=== PATIENT | female | born 1975 | race Caucasian/White ===

== ENCOUNTER 2019-10-28 13:00 | Outpatient (RCR) | payer OTHER, SELFPAY ==
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
--- NOTE | 2019-09-01 13:58 | PT.OPPOC ---
Physical, Occupational & Speech Therapy At [facility] Current Diagnoses Sacrococcygeal disorders, not elsewhere classified (09/01/19) Visit Care Team Role Provider Type Winter Buenrostro MD Attending Provider Non-Staff Primary Care Provider Specialty: Family Practice Address: [address] [place] [address], [id number] Email: Plan Of Care PT-OP-T Assessment and Plan Start: 07/18/19 21:41 Freq: Status: Active Protocol: Document 09/01/19 13:43 [facility] (Rec: 09/01/19 13:54 [facility] [email or web address]) Physical Therapy Assessment Goals Three Impairment sacral dysfunction with sacrum rotated left Short Term Goal (STG) With manual therapy techniques the sacrum is balanced and no longer rotated to the left, no tenderness to palpation over the left RICARDO and RICARDO's are equal depth As of 09/01/19 this is improved but there is still a deep tenderness at the left sacral RICARDO and swelling noted at the base of the sacrum STG Duration 4 weeks Two Impairment sacral and coccyx pain and pain with sitting and sit- stand [facility] Goal (LTG) Patience notes overall a reduction in pain levels and is able to perform sit-stand without symptoms As of 09/01/19 pt reports no pain in standing and can sit but it is when she goes to stand especially after sitting for long duration that she has large amounts of pain LTG Duration 8 weeks One Impairment pelvic floor hypertonicity and spasm, difficulty relaxing [employer] Physiotherapist Goal (LTG) Patience is able to relax her pelvic floor to baseline with EMG biofeedback and is able to feel when her pelvic floor is fully relaxed As of 09/01/19 Patience is able to relax to 2.5 uv with EMG biofeedback. She is still very guarded on the left coccygeus musculature. I have given her a size small dilator to work on self release and she is also using tennis balls on either side of her sacrum for self release along with her stretching and stabilization program LTG Duration 8 weeks Progress Towards Goals Progress Towards Goals Slow Progress - Other Progress Comments Patience has been seen for a total of 5 PT visits for her coccyx pain. We have been working on internal release of the coccyx with both rectal techniques and vaginal techniques. She shows improved alignment of her sacrum but still has a good amount of guarding at the coccygeus musculature. She tends to contract her pelvic floor at rest. We are working on both EMG biofeedback and manual cues to relax the coccygeus. Assessment Summary Assessment Pt reports she feels the best after yoga. There is tenderness at the left RICARDO today and tightness left coccygeus. Pt to work with her dilator on self release of the coccygeus. Pt doing better with pelvic floor relaxation in general today but still tends to contract when she feels she is relaxing. . Physical Therapy Plan Frequency and Duration Frequency of Treatment 2x/Week Duration of Treatment 8 Plan of Care Start Date 09/01/19 Plan of Care End Date 11/03/19 Therapeutic Interventions Therapeutic Interventions Home Exercise Program,Joint Mobilizations,Manual Therapy, Neuromuscular Re-education, Patient/Caregiver Education, Self-Care/Home Management,Soft Tissue Mobilization, Therapeutic Exercises Modalities Biofeedback Next Visit Focus/Plan Next Note Type Treatment Note Next Visit Plan Continue with EMG biofeedback for down training of the pelvic floor, manual therapy techniques for coccyx release, review pelvic floor stretches for home. Plan of Care Dates Plan of Care Start Date 09/01/19 Plan of Care End Date 11/03/19 Electronically Signed by: Mendy Quesada, PT 09/01/19 [id number] Please Sign and Return: I have reviewed this Plan of Care and certify that the skilled therapy services above are required to meet the patient?s needs. Physician Signature Date Printed Name and Credentials Clinical Instructor Signature Printed Name and Credentials
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
== END 2019-10-29 09:15 ==
LOC: PHYS 13:00
PROVIDERS: PCP Family Medicine; Visit Provider Family Medicine
DX: M53.3 Sacrococcygeal disorders, not elsewhere classified (principal)
CPT/HCPCS: 97110; 97140; 97161